=== PATIENT | male | born 1975 | race Caucasian/White ===

== ENCOUNTER 2016-09-09 07:59 | Observation (INO) | payer OTHER ==
[2016-09-09] MEDS ORDERED: NS 1,000 ML IV ONE (08:00)
[2016-09-09] MEDS ORDERED: MIDAZOLAM 2 MG/2 ML VIAL IVP ONE (08:00)
[2016-09-09] MEDS ORDERED: LIDOCAINE 1% 300 MG/30 ML SDV ONE (08:09)
[2016-09-09] MEDS ORDERED: HEPARIN 10,000 UNIT/10 ML MDV ONE ×2 (08:10→08:48)
[2016-09-09] MEDS ORDERED: BUPIVACAINE 0.5% 30 ML SDV ONE (08:10)
[2016-09-09] MEDS ORDERED: ISOPROTERENOL HCL 0.2 MG/ML 5ML AMP ONE (08:10)
[2016-09-09] MEDS ORDERED: PROPOFOL 200 MG/20 ML VIAL ONE (08:17)
[2016-09-09] MEDS ORDERED: DEXAMETHASONE 4 MG/ML VIAL ONE (08:17)
[2016-09-09] MEDS ORDERED: ROCURONIUM 100 MG/10 ML VIAL ONE ×3 (08:17→10:20)
[2016-09-09] MEDS ORDERED: fentaNYL 100 MCG/2 ML INJ ONE (08:17)
--- NOTE | 2016-09-09 08:27 | CPEKG ---
Heart Rate: 51 RR Interval: 1176 P-R Interval: 120 QRSD Interval: 146 QT Interval: 460 QTC Interval: 424 P [place]: 15 QRS [place]: 87 T Wave [place]: 4 EKG Severity - ABNORMAL ECG - EKG Impression: SINUS RHYTHM EKG Impression: VENT PREEXCITATION, LEFT ACCESSORY PATHWAY Electronically Signed By: Treasure Vora 09-Sep-2016 10:53:36
[2016-09-09 08:40] LABS: % IMMATURE GRANULYOCYTES 0.2 % (0.0-1.1); ABSOLUTE IMMATURE GRANULOCYTES 0.01 10^3/uL (0.00-0.10); ADD DIFF? NO; ADD MORPH? NO; ADD SCAN? NO; ATYPICAL LYMPHOCYTE FLAG 0 (0-99); FRAGMENT RBC FLAG 0 (0-99); HEMATOCRIT 43.2 % (40.0-51.0); HEMOGLOBIN 14.9 g/dL (13.7-17.5); LEFT SHIFT FLG 0 (0-99); LIPEMIA HEMOLYSIS FLAG 90 (0-99); MEAN CELL HEMOGLOBIN 29.5 pg (27.9-34.1); MEAN CELL HEMOGLOBIN CONCENTR. 34.5 g/dL (32.4-36.7); MEAN CELL VOLUME 85.5 fL (81.5-99.8); MEAN PLATELET VOLUME 10.5 fL (8.7-11.7); PLATELET CLUMPS FLAG 0 (0-99); PLATELET COUNT 175 10^3/uL (150-400); RED BLOOD CELL COUNT 5.05 10^6/uL (4.40-6.38)
[2016-09-09] MEDS ORDERED: HEPARIN/DEXTROSE 25,000 UNIT/500 ML BAG ONE (08:48)
[2016-09-09 08:52] LABS: ANION GAP 11 mEq/L (8-16); CALCIUM 9.3 mg/dL (8.5-10.4); CARBON DIOXIDE 25 mEq/l (22-31); CHLORIDE 105 mEq/L (97-110); CREATININE 1.3 mg/dL (0.7-1.3); GLOMERULAR FILTRATION RATE > 60; GLUCOSE 83 mg/dL (70-100); MAGNESIUM 2.2 mg/dL (1.6-2.3); SODIUM 141 mEq/L (134-144)
[2016-09-09 09:15] LABS: INR 1.04 (0.83-1.16); PROTIME(PATIENT) 13.5 SEC (12.0-15.0)
[2016-09-09 09:16] LABS: APTT 28.1 SEC (23.0-38.0)
[2016-09-09] MEDS ORDERED: PHENYLEPHRINE HCL 100 MCG/ML SYR ONE (09:47)
[2016-09-09] MEDS ORDERED: ONDANSETRON 4 MG/2 ML VIAL ONE (11:32)
[2016-09-09] MEDS ORDERED: PROTAMINE SULFATE 50 MG/5 ML VIAL IVP ONE (11:56)
[2016-09-09] MEDS ORDERED: SUGAMMADEX SODIUM 200 MG/2 ML VIAL IVP ONE (11:58)
[2016-09-09] MEDS ORDERED: ATROPINE SULFATE 1 MG/10 ML SYR ONE (12:30)
[2016-09-09] MEDS ORDERED: ACETAMINOPHEN 325 MG TAB PO PRN (13:13)
[2016-09-09] MEDS ORDERED: ONDANSETRON 4 MG/2 ML VIAL IVP PRN (13:13)
--- NOTE | 2016-09-09 13:16 | CPEKG ---
Heart Rate: 57 RR Interval: 1053 P-R Interval: 180 QRSD Interval: 100 QT Interval: 420 QTC Interval: 409 P [place]: 37 QRS [place]: 51 T Wave [place]: 68 EKG Severity - ABNORMAL ECG - EKG Impression: SINUS RHYTHM EKG Impression: ST ELEVATION SUGGESTS PERICARDITIS EKG Impression: COMPARED WITH 09 SEP 2016 AT 8;25, PRE-EXCITATION HAS RESOLVED Electronically Signed By: Treasure Vora 09-Sep-2016 13:42:54
[2016-09-09] MEDS ORDERED: ZOLPIDEM TARTRATE 5 MG TAB PO SCH (21:00)
[2016-09-10 07:25] LABS: % IMMATURE GRANULYOCYTES 0.1 % (0.0-1.1); ABSOLUTE IMMATURE GRANULOCYTES 0.01 10^3/uL (0.00-0.10); ADD DIFF? NO; ADD MORPH? NO; ADD SCAN? NO; ATYPICAL LYMPHOCYTE FLAG 0 (0-99); FRAGMENT RBC FLAG 0 (0-99); HEMATOCRIT 38.7 % (40.0-51.0); HEMOGLOBIN 13.4 g/dL (13.7-17.5); LEFT SHIFT FLG 0 (0-99); LIPEMIA HEMOLYSIS FLAG 90 (0-99); MEAN CELL HEMOGLOBIN 29.7 pg (27.9-34.1); MEAN CELL HEMOGLOBIN CONCENTR. 34.6 g/dL (32.4-36.7); MEAN CELL VOLUME 85.8 fL (81.5-99.8); MEAN PLATELET VOLUME 10.7 fL (8.7-11.7); PLATELET CLUMPS FLAG 10 (0-99); PLATELET COUNT 176 10^3/uL (150-400); RED BLOOD CELL COUNT 4.51 10^6/uL (4.40-6.38); RED CELL DISTRIBUTION WIDTH 12.4 % (11.5-15.2)
[2016-09-10 07:35] LABS: ANION GAP 8 mEq/L (8-16); CARBON DIOXIDE 24 mEq/l (22-31); CHLORIDE 108 mEq/L (97-110); GLOMERULAR FILTRATION RATE > 60; GLUCOSE 99 mg/dL (70-100); SODIUM 140 mEq/L (134-144)
[2016-09-10 07:40] LABS: INR 1.06 (0.83-1.16); PROTIME(PATIENT) 13.7 SEC (12.0-15.0)
[2016-09-10 07:47] LABS: CREATINE KINASE-MB FRACTION 2.88 ng/mL (0-3.19); TROPONIN I 0.816 ng/mL (0-0.034)
--- NOTE | 2016-09-10 08:48 | CPEKG ---
Heart Rate: 70 RR Interval: 857 P-R Interval: 168 QRSD Interval: 84 QT Interval: 376 QTC Interval: 406 P [place]: 49 QRS [place]: 37 T Wave [place]: 47 EKG Severity - ABNORMAL ECG - EKG Impression: SINUS RHYTHM EKG Impression: PROBABLE LEFT VENTRICULAR HYPERTROPHY EKG Impression: ST ELEVATION SUGGESTS PERICARDITIS Electronically Signed By: Treasure Vora 10-Sep-2016 11:52:46
[2016-09-10 08:58] VITALS: BP 101/78; PULSE 81; RESP 18; TEMP 97.9; O2SAT 94
[2016-09-10] MEDS ORDERED: ASPIRIN EC 81 MG TAB PO SCH (09:15)
--- NOTE | 2016-09-10 11:20 | ECHO ---
[id number] + + [address] : : [place] [address] : : [phone] + + Adult Echocardiographic Report + + :Name: Cally HOROWITZdavedillon Date: 09/10/2016 08:58 AM : : Hospital Admission Number: [id number] Location: 201: :: 1975 Gender: Male Height: 72 in : :Age: 41 yrs Race: WH Weight: 170 lb : :Reason For Study: F/U post EP study : : BSA: 2.0 meters2 : + + MMode/2D Measurements \T\ Calculations IVSd: 1.00 cm LVIDd: 4.7 cm FS: 39.3 % MV Diam: 3.1 cm LVPWd: 0.94 cm LVIDs: 2.9 cm EDV(Teich): 104.3 ml ESV(Teich): 31.6 ml EF(Teich): 69.8 % Ao root diam: LVOT diam: 2.1 cmLVLd ap4: 8.8 cm SV(MOD-sp4): 3.8 cm LVOT area: EDV(MOD-sp4): 66.0 ml LA dimension: 3.5 cm2 100.0 ml 3.4 cm LVLs ap4: 7.6 cm ESV(MOD-sp4): 34.0 ml EF(MOD-sp4): 66.0 % Normal Measurement Values: + + :LVIDd (3.5-5.7cm) IVSd (0.6-1.1cm) LVPWd (0.6-1.1cm) Aortic Root (2.0-3.7cm)Left Atrium (1.5-4.0cm): :LV Vol(d) (76-115ml) LV Vol(s) (29-48ml) Ejec Fraction (50-65%)PV [place] (0.6- 1.2m/s) TV [place]ogo (0.4-1.0m/s) : :MV E [place] (0.8-1.0m/s)MV A [place] (0.3-1.0m/s)LVOT [place] (0.7-1.2m/s) Asc Ao Diogo ( 0.9-1.8m/s) : + + Doppler Measurements \T\ Calculations MV E max diogo: MV V2 max: Ao mean PG: LV V1 mean P.2 cm/sec 105.0 cm/sec 4.3 mmHg 3.0 mmHg MV A max diogo: MV max P.4 mmHg Ao V2 mean: LV V1 mean: 65.2 cm/sec MV V2 mean: 96.5 cm/sec 82.4 cm/sec MV E/A: 1.5 60.8 cm/sec Ao V2 VTI: 27.2 cm LV V1 VTI: 27.3 cm MV mean P.7 mmHgAVA(I,D): 3.5 cm2 MV V2 VTI: 32.9 cm MV area (1 diam): 7.5 cm2 MVA(VTI): 2.9 cm2 MV Flow area(1diam): 7.5 cm2 MR max diogo: MR(RF 1 diam): 5.5 %SV(MV 1 diam): TR max diogo: 506.7 cm/sec 246.0 ml 216.0 cm/sec MR max PG: SI(MV 1 diam): TR max P.7 mmHg 123.7 ml/m2 18.7 mmHg SV(LVOT): 94.8 ml RAP systole: 5.0 mmHg RVSP(TR): 23.7 mmHg RF(MV,Ao)(1 diam): -0.27 RF(MV,LVOT) (1diam): 0.61 Left Ventricle The left ventricle is normal in size. There is normal left ventricular wall thickness. Left ventricular systolic function is normal. Ejection Fraction = 65-70%. No regional wall motion abnormalities noted. Right Ventricle The right ventricle is normal in size and function. Atria The left atrium is mildly dilated. Right atrial size is normal. The interatrial septum is intact with no evidence for an atrial septal defect. Mitral Valve The mitral valve leaflets appear thickened, but open well. There is no evidence of mitral valve prolapse. There is no mitral valve stenosis. There is moderate to severe mitral regurgitation. Tricuspid Valve Normal tricuspid valve. There is mild tricuspid regurgitation. Right ventricular systolic pressure is normal. Aortic Valve The aortic valve is trileaflet. The aortic valve opens well. There is no aortic stenosis. Trace aortic regurgitation. Pulmonic Valve The pulmonic valve is normal in structure and function. There is no pulmonic valvular regurgitation. Great Vessels The aortic root is normal size. Pericardium/Pleural There is no pericardial effusion. Conclusion A complete two-dimensional transthoracic echocardiogram was performed (2D, M-mode, Doppler and color flow Doppler). Left ventricular systolic function is normal. Ejection Fraction = 65-70%. No regional wall motion abnormalities noted. The left atrium is mildly dilated. Non-specific mitral valve leaflet thickening. There is moderate to severe mitral regurgitation. There is mild tricuspid regurgitation. Right ventricular systolic pressure is normal. Trace aortic regurgitation. There is no pericardial effusion. Final Reading Physician: Mirian Dong signed on 09/10/2016 11:19 AM Ordering Physician: Collins Moses Performed By: Myla Pitt RDCS
--- NOTE | 2016-09-10 14:58 | GDS ---
[f rep st] DISCHARGE SUMMARY DISCHARGE DIAGNOSES: 1. Sghwe-Mhsnjnmui-Wwfwu with pathic mnemonic delta waves on ECG. 2. Palpitations. 3. Moderate to severe mitral regurgitation found on echocardiogram. PROCEDURES: 1. 09/09/2016, EP study with ablation of the AV RT pathway on the left side. 2. 09/10/2016, echocardiogram which shows EF of 65 to 70, mildly dilated left atrium, nonspecific m itral valve leaflet thickening, moderate to severe MR, mild TR, normal RVSP. BRIEF HISTORY: Please see dictated H and P for complete details. In brief, the patient is a 41-yea r-old male with ventricular pre-excitation and palpitations. EKG is consistent with a left-sided ac cessary pathway. Options were reviewed, and patient agreed for EP study with ablation procedure. Lisa scott proceeded to this on 09/09/2016. On day of discharge, he denies any groin pain, chest pain, dyspn ea. PHYSICAL EXAM: VITAL SIGNS: On day of discharge, blood pressure 101/78, heart rate 81, respiration s 18, O2 saturation 94% on room air. Temp of 97.9 degrees Fahrenheit. GENERAL: He is a very pleas ant male in no apparent distress. EYES: PERRL. HEART: Regular rate and rhythm. LUNGS: Clear. EXTREMITIES: Bilateral groin sites without bruit, ecchymosis or tenderness on palpation. LABORATORY DATA: CBC with WBC 7.36, hemoglobin 13.4, hematocrit 38.7, platelet count of 176. BMP wi th sodium 140, potassium 4, chloride 108, CO2 24, BUN 23, creatinine 1, glucose of 99. Troponin of 0.816, consistent with recent ablation procedure. HOSPITAL COURSE BY PROBLEM: 1. Pre-excitation with palpitations. He proceeded to EP procedure with transseptal puncture, with successful ablation of the AV RT. He will be placed on aspirin for 4 weeks. He is advised on groin precautions. 2. Moderate to severe mitral regurgitation. We reviewed that he will require an echo in 1 year, wi th followup after that with Dr. Rojo. RESULTS PENDING: None. DIET: Per previous. ACTIVITY: Groin precautions. DISCHARGE MEDICATIONS: Please see med reconciliation. He is being discharged on his home Ambien. He is advised to start aspirin 81 mg p.o. daily. FOLLOWUP INSTRUCTIONS: 1. Groin precautions as reviewed. 2. Follow up with Dr. Moses in 1 month's time. 3. Follow up in the office in 1 year with a pre clinic echo. /[id number]/MODL
== END 2016-09-10 10:41 | disposition home or self-care (01) ==
LOC: FCATH 07:59 → EDSTATUS 08:30 → F2W 12:23 → UNDOADMOB 13:58 → F2W 13:58
PROVIDERS: ADMIT Internal Medicine Cardiovascular Disease; ATTEND Internal Medicine Cardiovascular Disease
PROC: 02563ZZ Destruction of Right Atrium, Percutaneous Approach (ICD-10-PCS; principal; 2016-09-09)
PROC: 025K3ZZ Destruction of Right Ventricle, Percutaneous Approach (ICD-10-PCS; principal; 2016-09-09)
PROC: 4A023FZ Measurement of Cardiac Rhythm, Percutaneous Approach (ICD-10-PCS; principal; 2016-09-09)
PROC: 5A1223Z Performance of Cardiac Pacing, Continuous (ICD-10-PCS; principal; 2016-09-09)
DX: I45.6 Pre-excitation syndrome (principal); R00.2 Palpitations; I34.0 Nonrheumatic mitral (valve) insufficiency
CPT/HCPCS: 93005; 93306; 93621; 93623; 93653; C1730; C1731; C1732; G0378; J0461; J1100; J1644; J2250; J2370; J2405; J2704; J2720; J3010